=== PATIENT | female | born 1965 | race Caucasian/White ===

== ENCOUNTER 2023-08-23 15:13 | Outpatient (RCR) | payer OTHER, SELFPAY | END 2023-08-23 23:59 | disposition home or self-care (01) | LOC: RPT 15:13 | PROVIDERS: ATTENDING PHYSICIAN Physical Medicine & Rehabilitation; FAMILY PHYSICIAN Family Medicine | DX: M54.16 Radiculopathy, lumbar region (principal); M53.3 Sacrococcygeal disorders, not elsewhere classified; Z73.6 Limitation of activities due to disability | CPT/HCPCS: 97110 ==

== ENCOUNTER 2025-06-03 11:46 | Inpatient (IN) | payer OTHER, SELFPAY ==
[2025-06-03] VITALS (28 sets, daily range): BP systolic 93–155; BP diastolic 51–114; BMI 37.1
[2025-06-03] MEDS: VALIUM INJECTION 2 MG IV (08:21)
[2025-06-03] MEDS: NITROSTAT (SUBLINGUAL) 0.4 MG SL ×2 (08:21→10:10)
--- NOTE | 2025-06-03 08:30 | ED.GENMED ---
History of Present Illness
General
Chief Complaint: Chest Pain
Source: patient and ambulance crew
Exam Limitations: none
Time Seen by Provider: 06/03/25 08:09
History of Present Illness
History of Present Illness:
Note:
CHIEF COMPLAINT(S)
Chest pain and tightness since Tuesday.
HISTORY OF PRESENT ILLNESS
The patient is a 59-year-old female who presents with chest pain and tightness that began on Tuesday. The patient describes the pain as occurring all up and down the chest. She reports having experienced similar problems in the past, stating 'I
had problems bad and stuff.' The patient conveys a sense of urgency in her experience, describing it as 'so tight.' She mentions having had heart-related issues previously, but today�s episode appears more acute. The patient acknowledges a history
of past episodes but sought help as the pain persisted.
SOCIAL HISTORY
The patient reports occasional alcohol use, stating she 'used to have it in a while.' She denies the use of any illicit drugs. She smokes, although the frequency and type of product were not explicitly stated.
MEDICATIONS
The patient is on antidepressant medications, mentioning sertraline and lorazepam as possibilities but is uncertain about the exact names. The patient also takes a personal medication but does not recall the name.
PHYSICAL EXAM
General: Alert, no acute distress.
Skin: Warm, dry.
Head: Normocephalic, atraumatic.
Neck: Supple, trachea midline.
Eye Ears, nose, mouth and throat: Oral mucosa moist.
Cardiovascular: Normal peripheral perfusion, No edema.
Respiratory: Respirations are non-labored.
Gastrointestinal : Abdomen nondistended.
Back: Normal range of motion, Normal alignment.
Musculoskeletal: Normal range of motion, normal strength.
Neurological: Alert and oriented to person, place, time, and situation, No focal neurological deficit observed.
Psychiatric: Cooperative, appropriate mood and affect.
PLAN
The plan includes conducting blood tests and administering medication to alleviate the chest pain and tightness. Further diagnostic evaluation and treatment will be adjusted based on the results to ensure the patients comfort and safety.
DIFFERENTIAL DIAGNOSIS
The Differential Diagnosis includes, in no particular order and is not limited to:
1. Acute coronary syndrome
2. Gastroesophageal reflux disease
3. Pulmonary embolism
4. Panic attack
5. Costochondritis
6. Pneumonia
7. Pericarditis
8. Angina pectoris
9. Aortic dissection
10. Pleural effusion
EKG
My independent EKG interpretation is:
- Time of EKG: Not specified
- Rhythm: Normal sinus rhythm
- Heart Rate: Not specified
- AL Interval: Not specified
- QRS Duration: Normal
- QT Interval: Not specified
- [place]: Normal
- Abnormalities Observed: T-wave abnormality inferior and lateral leads
- Comparison to Prior EKG: No change from prior EKG
SUMMARY OF ENCOUNTER
The patient, a 59-year-old female, presented to the emergency department with chest pain and tightness since Tuesday. The patient described the pain as occurring all up and down the chest, with a sense of urgency and a past history of similar
heart-related issues. An EKG was performed, revealing a T-wave abnormality in pure lateral leads, consistent with her previous cardiac issues. A diagnosis of non-ST elevation myocardial infarction (NSTEMI) was made. Management included the
administration of heparin and aspirin (initially provided by EMS). The patients condition improved with nitroglycerin. A plan for further evaluation with an echocardiogram and cardiac catheterization was discussed with cardiology.
MANAGEMENT OF THE PATIENTS CARE WAS DISCUSSED WITH
Cardiology was consulted, and the management plan of performing an echocardiogram and cardiac catheterization was coordinated.
INDEPENDENT REVIEW OF LABS AND INTERPRETATION OF TESTS
My independent EKG interpretation is: Normal sinus rhythm, with T-wave abnormality in pure lateral leads, consistent with NSTEMI.
MEDICATION RECONCILIATION
Heparin was administered in the emergency department. Aspirin was provided by EMS. Nitroglycerin was administered, resulting in symptom improvement.
MEDICAL DECISION MAKING
-Complexity of Data Reviewed: Chronic conditions affecting care include the patients history of heart-related issues. The differential diagnosis includes acute coronary syndrome, gastroesophageal reflux disease, pulmonary embolism, panic attack,
costochondritis, pneumonia, pericarditis, angina pectoris, aortic dissection, and pleural effusion.
-Data:
Category 1
Tests and documents reviewed and interpreted include an EKG, which I independently interpreted.
Category 3
Discussion of management with cardiology regarding the diagnosis of NSTEMI and the plan for echocardiography and cardiac catheterization.
DIAGNOSIS
Non-ST elevation myocardial infarction (NSTEMI) - ICD-10 code I21.4
Past History
Past History
ED Past Medical History: GERD, Hypercholesterolemia, Psychiatric (Anxiety, Panic attacks) and Other (Low back pain,Palpatations, Diverticulitis)
ED Past Surgical History: Orthopedic
Social History
Tobacco: Former smoker
Alcohol: Occasional
Personal: Single
Living: with family
Employment: Employed ([employer])
Phy Exam
Physical Exam
Physical Exam:
.
Scores
Heart Score for Chest Pain Patients
STEMI patient?: No
History: Slightly or Non-Suspicious
ECG: Nonspecific Repolarization
Age: >45 - <65 years
Risk Factors: 1 or 2 Risk Factors
Troponin: </= Normal Limit
Heart Score for Chest Pain Patients: 3
Heart Score Risk: 2.5% MACE over next 6 weeks
Course
Orders/Labs/Results
Orders:
Orders
06/03/25 08:11
Electrocardiogram (*1) Urgent
Reason for Study: Chest Pain
EKG- Treatment ONCE
CXR2 [CR Chest - 2 Views ] Urgent
Comment:
Reason For Exam: shortness of breath with chest pain
06/03/25 08:16
Complete Blood Count/With Diff Urgent
Comprehensive Metabolic Panel Urgent
Magnesium Urgent
06/03/25 08:17
Nitroglycerin Sublingual [Nitrostat (Sublingual)] 0.4 mg SL NOW STA
diazePAM [Valium Injection] 2 mg IV NOW STA
06/03/25 08:18
D-Dimer Urgent
PTT Urgent
06/03/25 08:27
IV Insert/Care/Rem.- Treatment PRN
06/03/25 08:59
Troponin I Urgent
06/03/25 09:53
0.9% Sodium Chloride 1000 ml [Nss] 1,000 ml IV BOLUS
Heparin 4,000 units IV NOW STA
Nitroglycerin Sublingual [Nitrostat (Sublingual)] 0.4 mg SL NOW STA
Pharmacy Request to Place See Dose Instructions PO NOW STA
Discontinue all Active Warfarin orders?: Yes
Nursing to Place Non Medication Order As Directed
Physician Order: PTT 6 hours after initial start of Heparin infusion
Above order entered?: Yes
06/03/25 09:58
Add On- LAB Urgent
Tests Added?: PTT
06/03/25 10:00
Heparin 54940 Units/250 ml 25,000 units in 250 ml IV PER PROTOCOL
Weight to be used for heparin protocol in kilograms (kg):: 104.326
Protocol:: Cardiac Tx/Acute Coronary
PTT Goal Range to be used:: PTT 73 to 111 seconds
Order type:: Initial
INITIAL Infusion Dose (UNITS/KG/hr) & then follow protocol:: 15 units/kg/hr
Infusion Dose in UNITS/hr & then follow protocol (UNITS/hr):: 1,500
INFUSION RATE in mL/hr & then follow protocol (mL/hr):: 15
PTT less than or equal to 64 seconds:: Increase rate by 200 units/hr (+ 2 mL/hr)
PTT 64.1 to 72.9 seconds:: Increase rate by 100 units/hr (+ 1 mL/hr)
PTT 73 to 111 seconds:: Target Range. No change in rate.
PTT 111.1 to 130.9 seconds:: Decrease rate by 100 units/hr (- 1 mL/hr)
PTT 131 to 199.9 seconds:: HOLD for 1 hr. Then decrease rate by 200 units/hr (- 2 mL/hr)
PTT greater than or equal to 200 seconds:: HOLD for 2 hrs & Notify Provider. Then decrease by 200 units/hr (-
2 mL/hr)
Lab follow-up:: Each change, PTT q6h until 2 consecutive are therapeutic. Then PTT
daily.
Pharmacy Request to Place See Dose Instructions IV DIRECTED
06/03/25 10:03
Heparin [id number] Units/250 ml 25,000 units in 250 ml .ROUTE .STK-MED
06/03/25 11:02
Echo 2D MMode Color/Doppler Urgent
Reason for Study: chest pain, elevated Troponin, increased stress
Cardiology Consult: Tim Hull
06/03/25 11:22
Admit/Transfer Patient As Directed
Co-Sign Provider:
Level of Care: Inpatient admission
Assign to:: IVU
Physician / Group: JUNG, Dr. uHll
Diagnosis: chest pain, elevated Troponin, ACS
Reason for Hospitalization: chest pain, elevated Troponin, ACS
Expected length of stay greater than two midnights?: Yes
ELOS- Estimated Length of Stay in days: 2
I certify the patient meets the requirements for IP care: Yes
PRN Pain Medication Management As Directed
May give lesser potent ordered pain med per pt: Yes
preference::
Protocol:: Medication orders for pain may be administered in a
manner that supports deferring to patient preference
when the pt is:
- Requesting an ordered lesser potent pain medication.
Least to most potent pain medications are defined
as: acetaminophen < NSAID < tramadol < opioids
(morphine, oxycodone, hydromorphone).
- Requesting a lesser dose of the same medication IF
ORDERED.
- Requesting a less intrusive route of administration
if both routes are prescribed by the provider (PO <
IV).
06/03/25 11:24
Code Status As Directed
Resuscitation Status: Full Code
06/03/25 16:00
PTT Urgent
Abnormal Lab Results
06/03/25 06/03/25 06/03/25
08:16 08:18 08:59
MPV 10.9 H fL
(7.4-10.4)
D-Dimer 0.62 H ug/mlFEU
(0.00-0.50)
Chloride 109 H mmol/L
(98-107)
Carbon Dioxide 19 L mmol/L
(22-30)
BUN 19 H mg/dl
(7-17)
Glucose 121 H mg/dl
(70-99)
Troponin I 0.272 H* ng/ml
06/03/25 08:16
06/03/25 08:16
Vital Signs
Initial and Last Documented VS:
Initial Vital Signs
Temp Pulse Resp BP Pulse Ox
98.6 F 79 24 155/114 100
06/03/25 08:08 06/03/25 08:08 06/03/25 08:08 06/03/25 08:08 06/03/25 08:08
Last Documented Vital Signs
Temp Pulse Resp BP Pulse Ox
98.6 F 71 15 114/73 96
06/03/25 08:08 06/03/25 15:02 06/03/25 15:02 06/03/25 15:02 06/03/25 15:02
*Pulse Oximetry
SaO2: 100
Oxygen Mode of Delivery: Room air
Patient hypoxic: no
*Critical Care Note
Total Time (30-74mins, 75-104mins- exclusive of procedures): 35
comment:
Critical care statement: A total of 35 minutes of critical care time was provided for this patient. This includes management of unstable vital signs, evaluation of the patient at bedside, reviewing the patient's pertinent medical records, discussion
with consultants, review of old EKGs and review of pertinent medical records. This time with separate from time utilized to perform the aforementioned documented procedures
ED Attending Note
-
Portions of this chart may have been created with voice recognition software.� Occasional wrong word or��sound alike� substitutions may have occurred due to the inherent limitations of voice recognition software.
Discharge Plan
Departure
Patient Disposition: Admit
Date of Disposition: 06/03/25
Time of Disposition: :58
Admit to: IVU
Presentation/result/management discussed w/ accepting MD/DO: cardiology-Dr Hull
Patient with high blood pressure during this ER visit?: Yes
Condition: Good
Discharge Problem:
Acute non-ST elevation myocardial infarction (NSTEMI)
Interventions
Interventions:
*Risk Screen - Suicide Last Done: 06/03/25 08:08
*General Assessment Last Done: 06/03/25 08:08
*Neglect/Abuse Screening Last Done: 06/03/25 08:08
*ED- Fall Risk Assessment Last Done: 06/03/25 08:08
*ED COVID-19 Vaccine History Last Done: 06/03/25 08:08
ED- Cardiac Assessment Last Done: 06/03/25 08:08
[2025-06-03 08:33] LABS: Hematocrit 38.4 % (37.0-47.0); Hemoglobin 12.9 g/dL (12.0-16.0); Mean Corp Hgb Conc. 33.6 g/dL (33.0-37.0); Mean Corpuscular Volume 88.3 fL (81.0-99.0); Nucleated Red Blood Cells % 0 %; Platelet Count 281 10^3/uL (130-400); Red Cell Dist. Width 13.6 % (11.5-14.5)
[2025-06-03 08:40] LABS: D-Dimer 0.62 ug/mlFEU (0.00-0.50)
[2025-06-03 08:47] LABS: ALT (SGPT) 21 U/L (0-35); AST (SGOT) 26 U/L (14-36); Albumin 4.7 g/dl (3.5-5.0); Alkaline Phosphatase 72 U/L (38-126); Blood Urea Nitrogen 19 mg/dl (7-17); Calcium 10.2 mg/dl (8.4-10.2); Carbon Dioxide 19 mmol/L (22-30); Chloride 109 mmol/L (98-107); Glucose 121 mg/dl (70-99); Magnesium 1.9 mg/dl (1.6-2.3); Potassium 4.3 mmol/L (3.5-5.1); Sodium 138 mmol/L (135-145); Total Protein 7.7 g/dl (6.3-8.2); eGFR > 60.00
[2025-06-03 09:36] LABS: Troponin I 0.272 ng/ml
--- NOTE | 2025-06-03 10:01 | PHANOTE ---
med rec note- called patient pharmacy, patient claims she takes blood pressure medication but no records at pharmacy. patient has not filled any blood pressure medication since September toprol xl 25mg daily for 30 days supply
[2025-06-03] MEDS: HEPARIN 25000 UNITS/250 ML IV (10:05)
[2025-06-03] MEDS: HEPARIN 4000 UNITS IV (10:07)
[2025-06-03 10:08] LABS: APTT 28.5 Sec (23.4-35.0)
[2025-06-03] MEDS: NSS 1000 IV (10:10)
--- NOTE | 2025-06-03 10:50 | CON.CAR ---
Addendum entered and electronically signed by Katya Cardoza PA-C 06/03/25 16:44:
New note created for RAFAELA risk score.
Addendum entered and electronically signed by Tim Hull DO 06/03/25 14:08:
I saw and examined the patient.
The Potato Loader's note was reviewed and I agree with the note.
Comment:
Plan:
Patient with history of hyperlipidemia, hypertension marijuana use, anxiety who has had intermittent symptoms of chest discomfort and dyspnea which worsened prompting her to come to the emergency room. She is under a lot of stress as her
[id number] recently passed and she is the primary grizzlyman of her mother whom she lives with. EKG with some lateral changes. Initial troponin 0.2.
Discussed options and she agreeable to a left heart cardiac catheterization to evaluate her coronary anatomy and potential for obstructive CAD and possible need for intervention.
Check fasting lipids
Continue IV heparin
Check urgent echo
Start aspirin and beta-farzad and statin therapy.
Gave her emotional support regarding her social situation. She is working on getting care for her mother while she is in the hospital.
Original Note:
Consultation
Consultation Request
Date/Time Consultation Requested: 06/03/2025
Date/Time Consultation Performed: 06/03/2025
Requesting Provider: Dr. Pruett
Performing Provider: Dr. Hull
Reason for Consultation: Chest pain and elevated troponin
Medical History
-
History of Present Illness:
Patient came to the ER today with chest pain and cardiology was consulted for elevated Troponin. Patient reports pain started this past Tuesday night after eating dinner while laying in bed was described as a severe substernal chest pain radiating
down both her arms that was relieved with sitting in a hot shower and breathing humidified air. Patient then had pain throughout the day on with triggers including eating, smoking marijuana and activity such as walking around. Patient had
no symptoms on Tuesday, but had an episode of coughing and had mucus with what she thought was blood which prompted her to go to urgent care for evaluation and following unremarkable CXR she was sent home from urgent care. Patient says pain started
again Tuesday and lasted on and off throughout the day and symptoms were consistently relieved with sitting in a hot shower and breathing humidified air. She had symptoms again on Tuesday, but she thinks the symptoms were worse because she was
visiting the home she used to live in before recently moving following the passing of her stepmother and that while moving up and down the stairs and that home she had chest pain. Patient then awoke this morning to the sensation of chest pain that
could not be relieved with hot shower and humidified air so she called 911 for assistance. Initial troponin in the ER was 0.272 and ECG with inferior and anterolateral ST changes. Patient had improvement in pain following NTG SL x 2 and pain has
not recurred. Overall patient thinks this is similar to when she has had esophageal spasm in the past, but overall frequency is increased.
PMH:
HTN
Daily marijuana smoker, quit 05/29/22
Untreated hyperlipidemia
Past Medical History
Past Medical History: Other (In HPI)
Past Surgical History: Orthopedic
Social History
Tobacco: Former Smoker
Alcohol: Occasional
Drug: Marijuana (used to smoke several times a day now quit in the last few days)
Personal: Partner (engaged)
Living: With Family (lives with her mother and is the mother's primary grizzlyman)
Family History
Family History: Other (mother with bipolar disorder)
Allergies / Home Medications
Allergy/AdvReac Type Severity Reaction Status Date / Time
ketorolac tromethamine (From Allergy Nausea / Verified 05/19/21 20:17
Toradol) Vomiting
�Medication �Instructions �Recorded �Confirmed �Type
diazepam 5 mg tablet 5 mg PO HSPRN PRN anxiety 07/11/17 06/03/25 History
citalopram 10 mg tablet (Celexa) 10 mg PO HS 06/03/25 06/03/25 History
Review of Systems
-
History Source: Patient
All other systems: Negative unless noted
Physical Exam
Vital Signs
Temp Pulse Resp BP Pulse Ox
98.6 F 77 18 136/81 100
06/03/25 08:08 06/03/25 08:20 06/03/25 08:20 06/03/25 10:15 06/03/25 08:32
GEN: Anxious and tearful at time. AAOx3
HEENT: EOMI, MMM
LUNGS: RA. CTA B/L, no wheeze
CV: Reg, S1/S2, no murmur
ABD: soft, BS+, NT, ND
EXT: No clubbing, cyanosis, lesions or edema B/L
NEURO: Gross non-focal
SKIN: Warm, dry and pink. No rash
Lab Results
06/03/25 08:16
06/03/25 08:16
Troponin I 0.272 ng/ml H* 06/03/25 08:59
Impression / Plan
-
PCP: Dr. Smith
Card: None
Impression:
Presented with chest pain and elevated Troponin 06/03/25
Chest pain
Elevated Troponin
HTN
Untreated hyperlipidemia
Hyperglycemia
Daily marijuana smoker, quit 05/29/22
Echo 06/03/25: Study pending
Plan:
-Patient came to the ER today with chest pain and cardiology was consulted for elevated Troponin. Patient reports pain started this past Tuesday night after eating dinner while laying in bed was described as a severe substernal chest pain
radiating down both her arms that was relieved with sitting in a hot shower and breathing humidified air. Patient then had pain throughout the day on with triggers including eating, smoking marijuana and activity such as walking around.
Patient had no symptoms on Tuesday, but had an episode of coughing and had mucus with what she thought was blood which prompted her to go to urgent care for evaluation and following unremarkable CXR she was sent home from urgent care. Patient says
pain started again Tuesday and lasted on and off throughout the day and symptoms were consistently relieved with sitting in a hot shower and breathing humidified air. She had symptoms again on Tuesday, but she thinks the symptoms were worse because
she was visiting the home she used to live in before recently moving following the passing of her stepmother and that while moving up and down the stairs and that home she had chest pain. Patient then awoke this morning to the sensation of chest
pain that could not be relieved with hot shower and humidified air so she called 911 for assistance. Initial troponin in the ER was 0.272 and ECG with inferior and anterolateral ST changes. Patient had improvement in pain following NTG SL x 2 and
pain has not recurred. Overall patient thinks this is similar to when she has had esophageal spasm in the past, but overall frequency is increased.
-ECG reviewed by me is SR with inferior and anterolateral ST changes
-Initial troponin 0.272 despite chest pain for 5 days. We will trend troponin serially
-Trend ECG serially
-Check echo urgently, echo ordered by me and urgent study coordinated by me with echo department staff
-Pending results of echo will consider cardiac catheterization today vs tomorrow based on symptoms, elevated troponin and risk factors including daily marijuana smoking, hyperglycemia, HTN and untreated hyperlipidemia.
-Patient reports being under increased psychosocial stress with the passing of her stepmother 2 months ago leading to the patient and her mother having to move into an apartment. The patient is the primary caregiver and is paid through a waiver
program to provide her mother's care and this makes her anxious and want to leave the hospital as soon as possible, but she is willing to stay and receive care as recommended.
-Patient says she has quit smoking marijuana in the last few days. Denies daily ETOH use
[2025-06-03 13:59] LABS: Troponin I 0.333 ng/ml
--- NOTE | 2025-06-03 15:53 | EDRN ---
Maricarmen HU from the label fuser tender called this RN and verbal report was given
--- NOTE | 2025-06-03 16:44 | W.PN.CARDCBS ---
Today's Communication / Plan
-
Additional note for RAFAELA documentation.
Impression / Plan
-
PCP: Dr. Smith
Card: None
Impression:
Presented with chest pain and elevated Troponin 06/03/25
Chest pain
Elevated Troponin
HTN
Untreated hyperlipidemia
Hyperglycemia
Daily marijuana smoker, quit 05/29/22
Echo 06/03/25: Study pending
Plan:
-Patient came to the ER today with chest pain and cardiology was consulted for elevated Troponin. Patient reports pain started this past Tuesday night after eating dinner while laying in bed was described as a severe substernal chest pain
radiating down both her arms that was relieved with sitting in a hot shower and breathing humidified air. Patient then had pain throughout the day on with triggers including eating, smoking marijuana and activity such as walking around.
Patient had no symptoms on Tuesday, but had an episode of coughing and had mucus with what she thought was blood which prompted her to go to urgent care for evaluation and following unremarkable CXR she was sent home from urgent care. Patient says
pain started again Tuesday and lasted on and off throughout the day and symptoms were consistently relieved with sitting in a hot shower and breathing humidified air. She had symptoms again on Tuesday, but she thinks the symptoms were worse because
she was visiting the home she used to live in before recently moving following the passing of her stepmother and that while moving up and down the stairs and that home she had chest pain. Patient then awoke this morning to the sensation of chest
pain that could not be relieved with hot shower and humidified air so she called 911 for assistance. Initial troponin in the ER was 0.272 and ECG with inferior and anterolateral ST changes. Patient had improvement in pain following NTG SL x 2 and
pain has not recurred. Overall patient thinks this is similar to when she has had esophageal spasm in the past, but overall frequency is increased.
-ECG reviewed by me is SR with inferior and anterolateral ST changes
-Initial troponin 0.272 despite chest pain for 5 days. We will trend troponin serially
-Trend ECG serially
-Check echo urgently, echo ordered by me and urgent study coordinated by me with echo department staff
-Pending results of echo will consider cardiac catheterization today vs tomorrow based on symptoms, elevated troponin and risk factors including daily marijuana smoking, hyperglycemia, HTN and untreated hyperlipidemia.
-Patient reports being under increased psychosocial stress with the passing of her stepmother 2 months ago leading to the patient and her mother having to move into an apartment. The patient is the primary caregiver and is paid through a waiver
program to provide her mother's care and this makes her anxious and want to leave the hospital as soon as possible, but she is willing to stay and receive care as recommended.
-Patient says she has quit smoking marijuana in the last few days. Denies daily ETOH use
Progress Note - Security Systems Administrator
Subjective
Date of Service: June 03, 2025
Objective
Labs:
06/03/25 08:16
06/03/25 08:16
Labs
Hgb 12.9 g/dL (12.0-16.0) 06/03/25 08:16
Hct 38.4 % (37.0-47.0) 06/03/25 08:16
Plt Count 281 10^3/uL (130-400) 06/03/25 08:16
APTT Cancelled 06/03/25 09:53
Sodium 138 mmol/L (135-145) 06/03/25 08:16
Potassium 4.3 mmol/L (3.5-5.1) 06/03/25 08:16
BUN 19 mg/dl (7-17) H 06/03/25 08:16
Creatinine 0.6 mg/dL (0.6-1.0) 06/03/25 08:16
Glucose 121 mg/dl (70-99) H 06/03/25 08:16
Troponins
06/03/25 06/03/25 06/03/25
08:16 08:59 13:27
Troponin I Cancelled 0.272 H* 0.333 H*
Vital Signs and I&O:
Vital Signs
Temp Pulse Resp BP Pulse Ox
98.6 F 71 15 114/73 96
06/03/25 08:08 06/03/25 15:02 06/03/25 15:02 06/03/25 15:02 06/03/25 15:02
Vital Signs
Temp Pulse Resp BP Pulse Ox
98.6 F 71 15 114/73 96
06/03/25 08:08 06/03/25 15:02 06/03/25 15:02 06/03/25 15:02 06/03/25 15:02
Scores
RAFAELA for NSTEMI
Age >/= 65: No
>/=3 CAD risk factors-HTN,High Chol,Fam hx CAD,DM,Smoker: Yes
Known CAD (stenosis >/=50%): No
ASA use in past 7 days: No
Severe angina (>/= 2 episodes in 24 hrs): Yes
EKG ST Changes >/= 0.5mm: No
Positive cardiac marker: Yes
Score: 3
Risk at 14 days-mortality, new/recurrent NV, severe ischemia: Intermediate Risk- 13% Risk at 14 days- all cause mortality, new or recurrent NV, or severe recurrent ischemia requiring urgent revascularization
[2025-06-03 16:47] LABS: ACT-LR - POC 332 Seconds (116-155)
[2025-06-03 17:13] LABS: ACT-LR - POC 266 Seconds (116-155)
--- NOTE | 2025-06-03 17:32 | ITS.CL.CATH ---
Automatic Machines Supervisor - Catheterization
Cardiac Catheterization
Procedure Report:
LEFT HEART CATHETERIZATION AND CORONARY INTERVENTION
Date of Procedure: June 03, 2025
Referring: Tim Hull D.O.
PROCEDURES:
1. Left heart catheterization, coronary angiogram.
2. Moderate sedation.
3. Successful percutaneous coronary artery intervention of a 90 to 95% distal RCA stenosis with one 2.5 x 18 mm Medtronic Opal frontier drug-eluting stent, postdilated using IVUS guidance with a 2.5 x 15 mm NC balloon at high pressures with an
excellent angiographic and IVUS based result.
4. Intravascular ultrasound (IVUS)
INDICATION: NSTEMI
ACCESS: Right radial artery, 6Fr. sheath, under US guidance.
HEMODYNAMICS : (mmHg)
AO (s/d) : 119/72
LVEDP : 11
No significant gradient across the aortic valve to suggest aortic stenosis.
CORONARY FINDINGS
Dominance: Right
Left Main Trunk (LMT): Large caliber vessel that gives rise to the LAD and LCx branches and is free of angiographic disease.
Left Anterior Descending Artery (LAD): Large caliber vessel that gives off 2 major diagonal branches as it courses along the anterior inter-ventricular groove before wrapping around the cardiac apex. Ostial LAD has 20% stenosis. Proximal to mid
LAD spanning both the diagonal branches has diffuse up to the 40% stenosis. D1 is a very small caliber vessel with ostial 70 to 80% stenosis. D2 is a medium caliber vessel with smooth 50% stenosis.
Left Circumflex Artery (LCx): Large caliber vessel that gives off 1 major obtuse marginal (OM) branch as it courses along the atrio-ventricular (AV) groove. OM1 is a large arborizing branch with mild diffuse atherosclerotic plaque. Circumflex
proper has mild to moderate diffuse atherosclerotic plaque distal to the OM1 takeoff.
Right Coronary Artery (RCA): Large caliber dominant vessel that gives rise to the posterior descending artery (RPDA) and postero-lateral ventricular (RPLV) branches distally. Distal RCA has a 90 to 95% hazy stenosis which is likely culprit of
presenting NSTEMI and was intervened upon as noted below. Mid RCA has tubular 30 to 40% stenosis.
CORONARY INTERVENTION: Decision was made to proceed with percutaneous coronary artery intervention of the culprit lesion in the distal RCA. Additional heparin was given to maintain therapeutic ACT throughout the case. The RCA was selectively
engaged using a 6 [place] JR4 guide catheter. A 190 cm 0.014 run-through wire was carefully navigated across the distal RCA stenosis into the RPDA. The lesion was predilated using a 2.5 x 12 mm semicompliant balloon with full expansion. The lesion
was subsequently stented using a 2.5 x 18 mm Medtronic Opal frontier drug-eluting stent. Intravascular ultrasound using a [employer] eye IVUS catheter guided us to post dilate using a 2.5 x 15 mm NC balloon at high pressures with an excellent
angiographic and IVUS based result. Patient tolerated the procedure well. Intra procedurally she did experience some throat and chest discomfort in the setting of significant hypertension with blood pressures in the 170s to 180s systolic in which
setting she was started on a nitroglycerin drip with improvement in her symptoms at the end of the case. She was loaded with 180 mg of Brilinta. No acute complications.
SEDATION: 47 minutes of procedural sedation was utilized. IV Midazolam and IV Fentanyl were administered. An independent medical instrument cable fabricator was present to assist with and help manage the patient's level of consciousness and physiologic status.
RADIATION SUMMARY: Fluoro Time (min): 7.3, Dose (mGy): 456.11, DAP (Gy.cm2) : 28.5
Closure Device: There were no immediate intra-procedural complications. The sheath was pulled in the labels molder and a vascular-band applied to the right wrist for radial artery hemostasis using the patent hemostasis technique.
CONCLUSIONS
1. Successful percutaneous coronary artery intervention of a 90 to 95% distal RCA stenosis with one 2.5 x 18 mm Medtronic Opal frontier drug-eluting stent, postdilated using IVUS guidance with a 2.5 x 15 mm NC balloon at high pressures with an
excellent angiographic and IVUS based result.
2. Ostial LAD has 20% stenosis. Proximal to mid LAD spanning both the diagonal branches has diffuse up to the 40% stenosis. D1 is a very small caliber vessel with ostial 70 to 80% stenosis. D2 is a medium caliber vessel with smooth 50% stenosis.
3. LVEDP of 11 mmHg.
RECOMMENDATIONS
1. Wean radial band per protocol. Monitor right hand perfusion and for bleeding from the radial site following removal of the vascular-band following trans-radial access.
2. Continue aggressive medical therapy and risk factor modification for secondary CAD prevention.
3. Continue ASA 81 mg daily for life.
4. Continue Brilinta for at least 12 months of uninterrupted dual anti-platelet therapy given drug-eluting stent (ADE) implantation to mitigate the risk of stent thrombosis. This is not to be stopped for any reason without the guidance of a
vacation guide.
5. Hydrate with normal saline to mitigate the risk of contrast-induced acute kidney injury.
6. Referral for outpatient cardiac rehab.
7. Follow-up with outpatient cardiology
Copy to: Tim Hull D.O.
Nohelia Adair MD, [facility], [facility]
[2025-06-03] MEDS: LIPITOR 80 MG PO (18:30)
[2025-06-03] MEDS: TOPROL XL 25 MG PO (18:32)
--- NOTE | 2025-06-03 19:40 | PTCARENOTE ---
at 1745 received patient from bundle tier and labeler, right R band intact,hand is dusky but o2 sat on hand 99%. monitor on NSR, patient has no complaints of pain, IV nitroglycerin remains on at 30mcg or 3cc/hr via left hand. oriented patient to room and
surroundings. report given to Janelle HU.
[2025-06-03 20:07] LABS: Troponin I 0.633 ng/ml
[2025-06-03] MEDS: NORVASC 2.5 MG PO (21:03)
[2025-06-03] MEDS: CELEXA 10 MG PO (22:07)
[2025-06-03] MEDS: VALIUM 5 MG PO (22:57)
--- NOTE | 2025-06-03 23:54 | PTCARENOTE ---
Patient received at change of shift out of bed to the chair. Nitro gtt initially infusing at 20mcg/min but was turned off due to BP 93/65 and reported dizziness. The patient was chest pain free at this time. Right radial TR band intact, pox on right
hand 94-98%, radial pulse palpable. Sinus rhythm on telemetry. TR band removed without incident per protocol, gauze and tegaderm applied, discussed activity restrictions with patient who verbalized understanding. The patient remains chest pain free
at this time and dizziness has not recurred since initial episode. Call barron within reach. Plan of care discussed. Care ongoing.
[2025-06-04 01:09] VITALS: BP 138/76
[2025-06-04] MEDS: TYLENOL 650 MG PO (01:13)
[2025-06-04 02:18] LABS: Troponin I 0.607 ng/ml
[2025-06-04 04:43] VITALS: BP 111/70
[2025-06-04 05:10] LABS: Hematocrit 35.6 % (37.0-47.0); Hemoglobin 11.9 g/dL (12.0-16.0); Mean Corp Hgb Conc. 33.4 g/dL (33.0-37.0); Mean Corpuscular Volume 91.3 fL (81.0-99.0); Platelet Count 245 10^3/uL (130-400); Red Cell Dist. Width 13.7 % (11.5-14.5)
[2025-06-04 05:34] LABS: Blood Urea Nitrogen 18 mg/dl (7-17); Calcium 9.3 mg/dl (8.4-10.2); Carbon Dioxide 23 mmol/L (22-30); Chloride 108 mmol/L (98-107); Estimated Creatinine Clearance 104 ml/min; Glucose 101 mg/dl (70-99); HDL Cholesterol 61 mg/dl; LDL Cholesterol, Calculated 132 mg/dl; Potassium 4.2 mmol/L (3.5-5.1); Sodium 138 mmol/L (135-145); Very Low Density Lipoprotein 24 mg/dl (0-30); eGFR > 60.00
[2025-06-04 06:25] LABS: Hepatitis C Antibody Negative (Negative)
--- NOTE | 2025-06-04 08:02 | W.PN.CARDCBS ---
Addendum entered and electronically signed by Jah Story MD 06/04/25 11:21:
Attending addendum: Patient seen and examined. RESPIRATORY CARE INSTRUCTOR note reviewed and findings confirmed by me. I reviewed angiogram and PCI results. She reported some pain in the wrist last night. Looking into the cost of Brilinta. May consider de-escalation
of antiplatelet therapy
PE:
Gen: NC/AT, sclera anicteric
HEENT: Poor dentition. NC/AT, sclera anicteric
Lungs: Clear
CV: RRR. Normal S1 and S2. No murmur
Ext: Right radial soft. Pulse is palpable. No bruit noted on exam
RECOMMENDATIONS:
-stable for discharge on dual antiplatelet therapy. Aspirin and Brilinta if not cost prohibitive.
-Could consider de-escalation of Brilinta in 3 months. IF we de escalate then load with Plavix 600mg x 1 24 hours after last Brilinta dose and start 75mg daily
-Atorvastatin 80 mg
-Continue amlodipine and oral beta farzad
-Consider repeat echocardiogram in 90 days
Original Note:
Today's Communication / Plan
-
adjust meds for BP
cardiac rehab consult
follow with [facility]
Impression / Plan
-
PCP: Karen Smith MD
Card: None- new to [facility]/Tim Hull DO
59 y/o, presents with intermittent chest pain for 1 week, with associated radiation to BUE. EKG with infero/anteriolateral changes, first troponin 0.27. Pain relieved with SL NTG. Echo showed preserved EF with inferior AK. Started on aspirin,
heparin and brought to clinical laboratory service teacher.
[facility] 06/03- 90-95% distal RCA hazy stenosis, s/p angioplasty/ADE x1
20% Ostial LAD, 40% prox-mid LAD
70-80% ostial D1, small caliber, 50% D2
LVEDP 11
Echo 06/03/25: nml LVSF, EF 55-60%, inferior AK, no sig valvular disease
IMPRESSION
NSTEMI
s/p dRCA PCI, 06/03/25
HTN
Untreated hyperlipidemia
Hyperglycemia
Daily marijuana smoker, quit 05/29/25
anxiety/increased stress
PLAN:
Tele- NSR, no vt/arrhythmia
radial cath site stable
DAPT w/asa, brilinta- cost affordable per CM
Peak troponin 0.633
echo results noted
Continue metoprolol xl 25/d
lipid profile noted- high intensity statin therapy w/atorvastatin 80/d
elevated BP- needed IV Nitro during/post case, now discontinued- new start amlodipine 2.5/d- monitor trends
cardiac rehab consult today
hyperglycemia noted- HgbA1C borderline 5.9%- to follow with PCP re: monitoring
continued cessation of daily marijuana stressed, will continue celexa, prn diazepam
followup at [facility] as arranged
home today
Progress Note - Value Stream Leader
Subjective
Date of Service: June 04, 2025
Denies cp/palps/dyspnea
oob ambulating
radial site tender to touch
Objective
Labs:
06/04/25 04:56
06/04/25 04:57
Labs
Hgb 11.9 g/dL (12.0-16.0) L 06/04/25 04:56
Hct 35.6 % (37.0-47.0) L 06/04/25 04:56
Plt Count 245 10^3/uL (130-400) 06/04/25 04:56
APTT Cancelled 06/03/25 16:00
Sodium 138 mmol/L (135-145) 06/04/25 04:57
Potassium 4.2 mmol/L (3.5-5.1) 06/04/25 04:57
BUN 18 mg/dl (7-17) H 06/04/25 04:57
Creatinine 0.7 mg/dL (0.6-1.0) 06/04/25 04:57
Glucose 101 mg/dl (70-99) H 06/04/25 04:57
Troponins
06/03/25 06/03/25 06/03/25
08:16 08:59 13:27
Troponin I Cancelled 0.272 H* 0.333 H*
06/03/25 06/03/25 06/03/25
16:47 19:16 22:47
Troponin I Cancelled 0.633 H* D Cancelled
06/04/25 06/04/25
01:33 06:30
Troponin I 0.607 H* Cancelled
Vital Signs and I&O:
Vital Signs
Temp Pulse Resp BP Pulse Ox
98.0 F 67 14 111/70 98
06/04/25 04:40 06/04/25 06:00 06/04/25 04:40 06/04/25 04:43 06/04/25 04:40
Vital Signs
Temp Pulse Resp BP Pulse Ox
98.0 F 67 14 111/70 98
06/04/25 04:40 06/04/25 06:00 06/04/25 04:40 06/04/25 04:43 06/04/25 04:40
Physical Exam
Physical Exam
AAox3, MAEE 5/5
RRR S1 S2 no murmurs
CTA bilat, non labored
soft abd, + bs
right radial cath site without ht/bleeding, forearm tender to palpation but soft
bilat extremities w/palpable distal pulses, no edema
[2025-06-04] MEDS: TOPROL XL 25 MG PO (08:26)
[2025-06-04] MEDS: BRILINTA 90 MG PO (08:26)
[2025-06-04] MEDS: LOW STRENGTH ASPIRIN 81 MG PO (08:26)
[2025-06-04 08:30] VITALS: BP 134/83
[2025-06-04] MEDS: NORVASC 2.5 MG PO (08:31)
--- NOTE | 2025-06-04 09:24 | CM ---
Addendum entered by Isaura Ferreira RN 06/04/25 11:07:
Patient agreeable. Script sent
Original Note:
Pricing on Brilinta through the patients PP is $233 with no prior auth needed. Ticagrelor is $25 for a 30 day. Patient's [facility] does not have it stock, but if ordered today will be in tomorrow. [facility] [address] [facility].
[2025-06-04 09:59] LABS: Glycohemoglobin (HgbA1c) 5.9 % (4.0-5.6)
[2025-06-04 11:28] VITALS: BP 104/77
--- NOTE | 2025-06-04 12:17 | W.DS.TRANS ---
DC Summary - Psychological Aide
-
Discharge Instructions:
Discharge Diagnosis/Procedures NSTEMI, s/p angioplasty and stent to Right
Coronary artery
Diet Low Cholesterol
Driving Restrictions No driving for 24 hours
Other Services Cardiac Rehab
Instructions:
Stand-Alone Forms: DC Instructions- Cath/EP Lab
Changes to Home Medications: Yes
Discharge Medications:
DC Medications w/original date entered in [facility]
diazepam 5 mg tablet 5 mg PO HSPRN PRN anxiety 07/11/17
citalopram 10 mg tablet (Celexa) 10 mg PO HS 06/03/25
amlodipine 2.5 mg tablet 2.5 mg PO DAILY #30 tabs 06/04/25
aspirin 81 mg chewable tablet 81 mg PO DAILY #1 tab 06/04/25
atorvastatin 80 mg tablet 80 mg PO QPM #30 tabs 06/04/25
metoprolol succinate 25 mg tablet,extended release 24 hr 25 mg PO DAILY #30 tabs 06/04/25
omeprazole 20 mg capsule,delayed release 20 mg PO DAILY 06/04/25
ticagrelor 90 mg tablet 90 mg PO BID #60 tabs 06/04/25
Home Medication Changes
NEW: amlodipine, aspirin, atorvastatin, ticagrelor
Pending Results: No
--- NOTE | 2025-06-04 12:35 | CM ---
Chart reviewed. 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 Plan is for the patient to return home
[2025-06-04 14:56] VITALS: BP 103/67
--- NOTE | 2025-06-04 16:53 | PTCARENOTE ---
Pt received this am with no c/o of any chest pain or sob. Pt OOB ad renny, gait steady. Room air sat 98%. Right radial site dressing dry and intact. Site WNL. Pt discharged to home with her friend. Discharge instructions given and reviewed with good
understanding and all questions answered.
== END 2025-06-04 17:04 | disposition home or self-care (01) | DRG 322 ==
LOC: IVU 11:46
PROVIDERS: Internal Medicine Interventional Cardiology; Nurse Practitioner; Physician Assistant Medical; ADMITTING PHYSICIAN Nuclear Medicine Nuclear Cardiology; EMERGENCY PHYSICIAN Emergency Medicine; FAMILY PHYSICIAN Family Medicine
PROC: 4A023N7 Measurement of Cardiac Sampling and Pressure, Left Heart, Percutaneous Approach (ICD-10-PCS; 2025-06-03)
PROC: B2111ZZ Fluoroscopy of Multiple Coronary Arteries using Low Osmolar Contrast (ICD-10-PCS; 2025-06-03)
PROC: 027034Z Dilation of Coronary Artery, One Artery with Drug-eluting Intraluminal Device, Percutaneous Approach (ICD-10-PCS; 2025-06-03)
PROC: B240ZZ3 Ultrasonography of Single Coronary Artery, Intravascular (ICD-10-PCS; 2025-06-03)
DX: I21.4 Non-ST elevation (NSTEMI) myocardial infarction (principal); I10 Essential (primary) hypertension; E78.00 Pure hypercholesterolemia, unspecified; R73.9 Hyperglycemia, unspecified; I25.10 Atherosclerotic heart disease of native coronary artery without angina pectoris; Z79.899 Other long term (current) drug therapy; F12.90 Cannabis use, unspecified, uncomplicated; Z81.8 Family history of other mental and behavioral disorders; F41.0 Panic disorder [episodic paroxysmal anxiety]; K21.9 Gastro-esophageal reflux disease without esophagitis
CPT/HCPCS: 71046; 80048; 80053; 80061; 83036; 83735; 84484; 85025; 85027; 85347; 85379; 85730; 86803; 92978; 93005; 93306; 93458; 96361; 96374; 96375; 96376; 99291; C1725; C1753; C1769; C1874; C1887; C1894; C9600; Q9967

== ENCOUNTER 2025-07-12 16:04 | Outpatient (RCR) | payer OTHER, SELFPAY | END 2025-07-12 23:59 | disposition home or self-care (01) | LOC: CRHB 16:04 | PROVIDERS: ATTENDING PHYSICIAN Internal Medicine Interventional Cardiology; FAMILY PHYSICIAN Family Medicine | DX: I21.4 Non-ST elevation (NSTEMI) myocardial infarction (principal); I25.2 Old myocardial infarction (principal); I25.10 Atherosclerotic heart disease of native coronary artery without angina pectoris; Z95.5 Presence of coronary angioplasty implant and graft | CPT/HCPCS: 93797; 93798 ==

== ENCOUNTER 2025-08-09 13:23 | Outpatient (RCR) | payer OTHER, SELFPAY | END 2025-08-09 23:59 | disposition home or self-care (01) | LOC: CRHB 13:23 | PROVIDERS: ATTENDING PHYSICIAN Internal Medicine Interventional Cardiology; FAMILY PHYSICIAN Family Medicine | DX: I25.10 Atherosclerotic heart disease of native coronary artery without angina pectoris (principal); I25.2 Old myocardial infarction; Z95.5 Presence of coronary angioplasty implant and graft | CPT/HCPCS: 93797; 93798 ==

== ENCOUNTER 2025-09-09 14:26 | Outpatient (RCR) | payer OTHER, SELFPAY ==
[2025-08-22 14:35] LABS: HDL Cholesterol 72 mg/dl; LDL Cholesterol, Calculated 36 mg/dl; Very Low Density Lipoprotein 41 mg/dl (0-30)
== END 2025-09-09 23:59 | disposition home or self-care (01) ==
LOC: CRHB 14:26
PROVIDERS: ATTENDING PHYSICIAN Internal Medicine Interventional Cardiology; FAMILY PHYSICIAN Family Medicine
DX: I25.10 Atherosclerotic heart disease of native coronary artery without angina pectoris; Z95.5 Presence of coronary angioplasty implant and graft; I25.2 Old myocardial infarction; I21.4 Non-ST elevation (NSTEMI) myocardial infarction
CPT/HCPCS: 36415; 80061; 93797; 93798